=== PATIENT | male | born 1960 | race Caucasian/White ===

== ENCOUNTER 2020-05-10 04:50 | Emergency (ER) | payer BC ==
[2020-05-10] MEDS ORDERED: Morphine 4 MG/ML VIAL ONE ×2 (05:51)
[2020-05-10] MEDS ORDERED: Ondansetron ODT 4 MG TAB ONE (05:52)
[2020-05-10] MEDS ORDERED: HYDROcodone/Acetaminophen 5/325 mg Tablet ONE (05:52)
== END 2020-05-10 06:26 | disposition home or self-care (01) ==
LOC: ERS 04:50
DX: M25.552 Pain in left hip (principal); M54.5 Low back pain; M79.10 Myalgia, unspecified site; I10 Essential (primary) hypertension; E11.9 Type 2 diabetes mellitus without complications; Z79.84 Long term (current) use of oral hypoglycemic drugs; Z79.82 Long term (current) use of aspirin; X50.9XXA Other and unspecified overexertion or strenuous movements or postures, initial encounter; Z79.899 Other long term (current) drug therapy
CPT/HCPCS: 96372; 99283; J2270; Q0162

== ENCOUNTER 2024-01-13 12:15 | Outpatient (CLI) | payer OTHER | END 2024-01-13 12:16 | disposition home or self-care (01) | LOC: SCSMRI 12:15 | PROVIDERS: ATTEND Family Medicine | DX: S49.91XA Unspecified injury of right shoulder and upper arm, initial encounter (principal); M19.011 Primary osteoarthritis, right shoulder; S43.431A Superior glenoid labrum lesion of right shoulder, initial encounter; M67.813 Other specified disorders of tendon, right shoulder | CPT/HCPCS: 70210 ==